=== PATIENT | female | born 1995 | race Two or more races ===

== ENCOUNTER 2017-08-10 11:16 | Emergency (ER) | payer OTHER ==
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
[2017-08-10 14:08] VITALS: BP 111/62
== END 2017-08-10 13:55 | disposition home or self-care (01) ==
LOC: ER 11:16
DX: M25.511 Pain in right shoulder (principal); M25.551 Pain in right hip; V48.6XXA Car passenger injured in noncollision transport accident in traffic accident, initial encounter
CPT/HCPCS: 99284